=== PATIENT | female | born 1970 | race Caucasian/White ===

== ENCOUNTER 2020-08-04 21:11 | Inpatient (IN) | payer MEDICAID ==
[~2020-08-04] VITALS: Ht 162.6 cm; Wt 81.6 kg
--- NOTE | 2020-08-04 21:29 | NUR ---
URINE COLLECTED. SENT TO LAB
[2020-08-04] MEDS ORDERED: KETOROLAC TROMETHAMINE 15 MG/ML VIAL ONE (21:39)
--- NOTE | 2020-08-04 21:43 | NUR ---
PATIENT CAME TO THE ER BED 9 C/O RIGHT UPPER QUADRANT PAIN FOR 3 WEEKS THAT HAS BEEN WORSENING TODAY. PATIENT DENIES NAUSEA AT THE MOMENT. PATIENT IS AAOX4. NO SOB .BREATHING EVENLY AND UNLABORED ON ROOM AIR. CONNECTED TO THE MONITOR.
--- NOTE | 2020-08-04 21:46 | NUR ---
BLOOD COLLECTED AND SENT TO LAB.
[2020-08-04 21:50] LABS: HEMOGLOBIN 11.4 g/dL (11.5-14.8); WHITE BLOOD COUNT (AUTO) 7.2 K/uL (4.3-11.0)
[2020-08-04 21:51] LABS: BILIRUBIN,URINE Negative (NEGATIVE); COLOR,URINE YELLOW (YELLOW); LEUKOCYTE ESTERASE ,URINE Negative (NEGATIVE); NITRITE, URINE Negative (NEGATIVE); PROTEIN,URINE Negative (NEGATIVE); UGLUCOSE >=1000 mg/dL (NEGATIVE); UROBILINOGEN,URINE 0.2 EU/dL (0.2)
[2020-08-04 21:53] LABS: BASOPHILS % (AUTO) 0.2 % (0.0-2.0); EOSINOPHILS % (AUTO) 2.1 % (0.0-6.0); HEMATOCRIT 35 % (33-45); LYMPHOCYTES % (AUTO) 27.2 % (20.0-44.0); MEAN CORPUSCULAR HGB CONC 32 g/dl (31.0-36.0); MEAN CORPUSCULAR VOLUME 78 fL (82-100); MONOCYTES # (AUTO) 0.7 /CMM (0.1-1.30); NEUTROPHILS # (AUTO) 4.4 /CMM (1.8-8.9); NEUTROPHILS % (AUTO) 60.5 % (43.0-81.0); PLATELET COUNT (AUTO) 293 /CMM (150-450); RED BLOOD CELL COUNT(AUTO) 4.49 MIL/uL (4.0-5.2)
[2020-08-04 21:59] LABS: CALCIUM, SERUM 9.3 mg/dL (8.5-10.1); CREATININE 0.7 mg/dL (0.6-1.3)
[2020-08-04] MEDS ORDERED: KETOROLAC TROMETHAMINE INJ 30 MG/ML VIAL IV ONE (22:00)
[2020-08-04 22:06] LABS: ALBUMIN 3.7 g/dL (3.4-5.0); BILIRUBIN,DIRECT 0.1 mg/dL (0.0-0.2); BILIRUBIN,TOTAL 0.5 mg/dL (0.2-1.0)
[2020-08-04 22:11] LABS: BACTERIA,URINE Rare /HPF (None Seen); SQUAMOUS EPITHELIAL CELL,UR Few /HPF (None Seen); WBC,URINE NONE SEEN /HPF (0-3)
[2020-08-04] MEDS ORDERED: ASPIRIN 81 MG TAB.CHEW PO ONE (23:30)
[2020-08-04] MEDS ORDERED: ASPIRIN 81 MG TAB.CHEW ONE (23:44)
--- NOTE | 2020-08-05 00:26 | NUR ---
WOODYARD CRANE OPERATOR AT BEDSIDE FOR REDRAW OF TROPONIN
--- NOTE | 2020-08-05 04:26 | NUR ---
Yuliya hinojosa in ED - 08/05/20 at 0427 by DEBBIE ENCOURAGED PT TO PROVIDE URINE. PT STATES "I FINISHED MY WATER BOTTLE. I'LL TRY AGAIN LATER".
[2020-08-05] MEDS ORDERED: ONDANSETRON HCL/PF 4 MG/2 ML VIAL IVP PRN (05:00)
[2020-08-05] MEDS ORDERED: DEXTROSE 50%-WATER 50 ML DISP.SYRIN IV PRN (05:00)
[2020-08-05] MEDS ORDERED: ACETAMINOPHEN 325 MG TABLET PO PRN (05:00)
[2020-08-05] MEDS ORDERED: INSULIN REGULAR, HUMAN 100 UNIT/ML 3 ML VIAL SQ PRN (05:00)
[2020-08-05] MEDS ORDERED: MORPHINE SULFATE INJ 2 MG/ML DISP.SYRIN IV PRN (05:00)
[2020-08-05] MEDS ORDERED: ONDANSETRON HCL/PF 4 MG/2 ML VIAL ONE (05:11)
[2020-08-05] MEDS ORDERED: MORPHINE SULFATE INJ 2 MG/ML DISP.SYRIN ONE (05:11)
[2020-08-05] MEDS: BLOOD SUGAR DIAGNOSTIC 1 EACH STRIP IN SCH ×2 (05:22→12:21)
[2020-08-05 05:27] LABS: BASOPHILS % (AUTO) 0.2 % (0.0-2.0); EOSINOPHILS % (AUTO) 2.9 % (0.0-6.0); HEMATOCRIT 33 % (33-45); HEMOGLOBIN 10.7 g/dL (11.5-14.8); LYMPHOCYTES # (AUTO) 1.8 /CMM (0.8-4.8); LYMPHOCYTES % (AUTO) 31.1 % (20.0-44.0); MEAN CORPUSCULAR HGB CONC 33 g/dl (31.0-36.0); MEAN CORPUSCULAR VOLUME 77 fL (82-100); MONOCYTES # (AUTO) 0.6 /CMM (0.1-1.30); MONOCYTES % (AUTO) 9.9 % (2.0-12.0); NEUTROPHILS # (AUTO) 3.3 /CMM (1.8-8.9); NEUTROPHILS % (AUTO) 55.9 % (43.0-81.0); PLATELET COUNT (AUTO) 266 /CMM (150-450); RED BLOOD CELL COUNT(AUTO) 4.22 MIL/uL (4.0-5.2); WHITE BLOOD COUNT (AUTO) 5.9 K/uL (4.3-11.0)
[2020-08-05 05:41] LABS: CHOLESTEROL 184 mg/dL (<200); HDL CHOLESTEROL 33 mg/dL (40-60); LDL 125 mg/dL (0-99); TRIGLYCERIDES 186 mg/dL (30-150)
[2020-08-05 05:43] LABS: ALANINE AMINOTRANSFERASE 24 U/L (12-78); ALBUMIN 3.3 g/dL (3.4-5.0); ALKALINE PHOSPHATASE 82 U/L (46-116); ASPARTATE AMINOTRANSFERASE 13 U/L (15-37); BILIRUBIN,TOTAL 0.5 mg/dL (0.2-1.0); CALCIUM, SERUM 8.9 mg/dL (8.5-10.1); CARBON DIOXIDE 26 mmol/L (21-32); CHLORIDE 101 mmol/L (98-107); CREATININE 0.6 mg/dL (0.6-1.3); GLUCOSE 228 mg/dL (74-106); LIPASE 70 U/L (73-393); MAGNESIUM 1.8 mg/dL (1.8-2.4); PHOSPHORUS 4.1 mg/dL (2.5-4.9); POTASSIUM 3.9 mmol/L (3.5-5.1); SODIUM SERUM 137 mmol/L (136-145); TOTAL PROTEIN, SERUM 7.1 g/dL (6.4-8.2); UREA NITROGEN, BLOOD 11 mg/dL (7-18)
--- NOTE | 2020-08-05 07:40 | NUR ---
REPORT GIVEN TO RENETTA HOWELL FOR [facility].
[2020-08-05] MEDS ORDERED: FAMOTIDINE/PF INJ 20 MG/2 ML VIAL IV SCH (09:00)
[2020-08-05] MEDS ORDERED: FAMOTIDINE/PF INJ 20 MG/2 ML VIAL IV ONE (09:01)
[2020-08-05] MEDS ORDERED: METF-442 PO (09:07)
[2020-08-05] MEDS ORDERED: ASPI-1169 PO (09:07)
[2020-08-05] MEDS ORDERED: INSU100V7 SQ ×2 (09:07)
[2020-08-05] MEDS ORDERED: IV NS 0.9% 250 ML IV ONE (09:30)
[2020-08-05] MEDS ORDERED: IOHEXOL-300 100 ML VIAL IV ONE (09:30)
[2020-08-05] MEDS ORDERED: CT SWABBABLE VALVE TRANS SET 1 EA INFUS.SET MC ONE (09:30)
--- NOTE | 2020-08-05 09:44 | NUR ---
COMPLETED CT SCAN WITH CONTRAST. INSTRUCTED NOT TO TAKE METFORMIN X2 DAYS.
[2020-08-05] MEDS ORDERED: ATOR10TA PO (11:27)
[2020-08-05] MEDS ORDERED: POLY17PO4 PO (11:27)
--- NOTE | 2020-08-05 11:28 | NUR ---
SEEN AND EXAMINED BY MARINO TAYLOR NP.
[2020-08-05] MEDS ORDERED: LACTULOSE 10 G/15 ML UDC (PYXIS) PO ONE (11:30)
[2020-08-05] MEDS ORDERED: SORBITOL SOLUTION 30 ML PO ONE (11:30)
[2020-08-05] MEDS ORDERED: SORBITOL SOLUTION 30 ML ONE (11:32)
[2020-08-05] MEDS ORDERED: LACTULOSE 10 G/15 ML UDC (PYXIS) ONE (11:32)
--- NOTE | 2020-08-05 13:20 | NUR ---
PATIENT A/OX4, BREATHING EVEN AND UNLABORED, GIVEN WATER. STILL UNABLE TO HAVE BM AT THIS TIME. MD SAID ITS OKAY. PATIENT GIVEN RX. IV removed. Catheter intact and site benign. Pressure and 4x4 applied to site. No bleeding noted.Patient discharged to home in stable condition. Written and verbal after care instructions given. Patient verbalizes understanding of instruction.
[2020-08-05 13:21] VITALS: BP 121/78
[2020-08-05] MEDS ORDERED: ATORVASTATIN 10 MG TABLET PO SCH (22:00)
== END 2020-08-05 13:22 | disposition home or self-care (01) | DRG 254 ==
LOC: ER 21:14 → TRANSITION 08-05 01:35
PROVIDERS: ADMIT Nurse Practitioner Acute Care; ATTEND Nurse Practitioner Acute Care
DX: K59.00 Constipation, unspecified (principal); E11.40 Type 2 diabetes mellitus with diabetic neuropathy, unspecified; Z79.4 Long term (current) use of insulin; Z79.82 Long term (current) use of aspirin; Z90.49 Acquired absence of other specified parts of digestive tract; Z88.0 Allergy status to penicillin; E78.5 Hyperlipidemia, unspecified; E86.0 Dehydration; E87.1 Hypo-osmolality and hyponatremia; D68.59 Other primary thrombophilia; E11.65 Type 2 diabetes mellitus with hyperglycemia; E66.9 Obesity, unspecified; K42.9 Umbilical hernia without obstruction or gangrene; Z68.30 Body mass index [BMI] 30.0-30.9, adult
CPT/HCPCS: 36415; 71045-TC; 80048-TC; 80053-TC; 80061-TC; 80076-TC; 81001; 82962-TC; 83690-TC; 83735-TC; 84100-TC; 84484-TC; 84703-TC; 85025-TC; 87081-TC; C9113; G0378; J1815; J1885; J2270; J2405; J3490; J7050; Q9967

== ENCOUNTER 2020-08-25 13:14 | Emergency (ER) | payer MEDICAID ==
[~2020-08-25] VITALS: Ht 157.5 cm; Wt 80.7 kg
[~2020-08-25 13:14] MED LIST: ASPI-1169 PO; ATOR10TA PO; INSU100V7 SQ; METF-442 PO; POLY17PO4 PO
--- NOTE | 2020-08-25 13:14 | NUR ---
PT BIB SELF C/O RIGHT FLANK RADIATING TO RUQ X 1 MONTH. PT IS AAOX4, NOT IN RESPIRATORY DISTRESS, HOOKED TO SUPERVISOR BODY ASSEMBLY, KEPT RESTED AND COMFORTABLE. WILL CONTINUE TO MONITOR.
--- NOTE | 2020-08-25 13:25 | NUR ---
Yuliya hinojosa in [facility] - 08/25/20 at 1340 by ZAIN SEEN AND EXAMINED BY .
--- NOTE | 2020-08-25 13:25 | NUR ---
SEEN AND EXAMINED BY .
--- NOTE | 2020-08-25 13:33 | NUR ---
IV LINE ESTABLISHED BLOOD DRAWN AND SENT TO LAB.
[2020-08-25] MEDS ORDERED: ONDANSETRON HCL/PF 4 MG/2 ML VIAL ONE (13:44)
[2020-08-25 13:45] LABS: BASOPHILS % (AUTO) 0.4 % (0.0-2.0); EOSINOPHILS % (AUTO) 3.6 % (0.0-6.0); HEMATOCRIT 36 % (33-45); HEMOGLOBIN 11.5 g/dL (11.5-14.8); LYMPHOCYTES # (AUTO) 1.6 /CMM (0.8-4.8); MEAN CORPUSCULAR HGB CONC 32 g/dl (31.0-36.0); MEAN CORPUSCULAR VOLUME 78 fL (82-100); MONOCYTES # (AUTO) 0.8 /CMM (0.1-1.30); MONOCYTES % (AUTO) 8.5 % (2.0-12.0); NEUTROPHILS # (AUTO) 6.5 /CMM (1.8-8.9); NEUTROPHILS % (AUTO) 70.5 % (43.0-81.0); PLATELET COUNT (AUTO) 242 /CMM (150-450); RED BLOOD CELL COUNT(AUTO) 4.58 MIL/uL (4.0-5.2); WHITE BLOOD COUNT (AUTO) 9.2 K/uL (4.3-11.0)
[2020-08-25] MEDS ORDERED: MORPHINE SULFATE INJ 4 MG/ML DISP.SYRIN ONE (13:45)
[2020-08-25 13:46] LABS: BILIRUBIN,URINE NEGATIVE (NEGATIVE); COLOR,URINE YELLOW (YELLOW); LEUKOCYTE ESTERASE ,URINE NEGATIVE (NEGATIVE); NITRITE, URINE NEGATIVE (NEGATIVE); PROTEIN,URINE NEGATIVE (NEGATIVE); UGLUCOSE >=1000 mg/dL (NEGATIVE); UROBILINOGEN,URINE 0.2 EU/dL (0.2)
[2020-08-25 14:00] LABS: ALBUMIN 3.7 g/dL (3.4-5.0); BILIRUBIN,DIRECT 0.1 mg/dL (0.0-0.2); BILIRUBIN,TOTAL 0.4 mg/dL (0.2-1.0); CALCIUM, SERUM 9.7 mg/dL (8.5-10.1); CREATININE 0.7 mg/dL (0.6-1.3); TOTAL PROTEIN, SERUM 7.7 g/dL (6.4-8.2)
[2020-08-25] MEDS ORDERED: ONDANSETRON HCL/PF 4 MG/2 ML VIAL IVP ONE (14:00)
[2020-08-25] MEDS ORDERED: MORPHINE SULFATE INJ 2 MG/ML DISP.SYRIN IV ONE (14:00)
[2020-08-25 14:04] LABS: RBC,URINE 0-2 /HPF (0-2)
[2020-08-25 14:07] LABS: BACTERIA,URINE Few /HPF (None Seen); YEAST,URINE Few /HPF (None Seen)
[2020-08-25 14:08] LABS: SQUAMOUS EPITHELIAL CELL,UR Many /HPF (None Seen)
--- NOTE | 2020-08-25 14:21 | NUR ---
PT IS BACK FROM THE CT SCAN.
[2020-08-25] MEDS ORDERED: IV NS 0.9% 1,000 ML IV ONE (15:00)
[2020-08-25] MEDS ORDERED: IBUP-1955 PO (15:29)
--- NOTE | 2020-08-25 15:50 | NUR ---
IV removed. Catheter intact and site benign. Pressure and 4x4 applied to site. No bleeding noted. Patient discharged to home in stable condition. Written and verbal after care instructions given. Patient verbalizes understanding of instruction.
[2020-08-25 15:51] VITALS: BP 123/81
== END 2020-08-25 15:51 | disposition home or self-care (01) ==
LOC: ER 13:14
DX: R10.31 Right lower quadrant pain (principal); R10.11 Right upper quadrant pain; E11.65 Type 2 diabetes mellitus with hyperglycemia; E78.5 Hyperlipidemia, unspecified; Z90.49 Acquired absence of other specified parts of digestive tract; Z88.0 Allergy status to penicillin; Z79.82 Long term (current) use of aspirin; Z79.84 Long term (current) use of oral hypoglycemic drugs; Z79.899 Other long term (current) drug therapy
CPT/HCPCS: 36415; 74176; 80048; 80076; 81001; 83690; 85025; 96361; 96374; 96375; 99284; J2270; J2405; J7030

== ENCOUNTER 2024-03-27 10:50 | Emergency (ER) | payer MEDICAID, OTHER ==
[~2024-03-27] VITALS: Ht 165.1 cm; Wt 86.2 kg
[~2024-03-27 10:50] MED LIST changes: +IBUP-1955 PO
[2024-03-27 11:00] VITALS: BP 127/69; TEMP 98.2
--- NOTE | 2024-03-27 11:10 | NUR ---
THE PATIENT BIBS FOR C/O RIGHT KNEE PAIN X 1 MONTH,NO TRAUMA, HURST TO WALK. RATES PAIN 4/10.
[2024-03-27] MEDS ORDERED: IBUP-1955 PO (12:16)
[2024-03-27 12:32] VITALS: O2SAT 99
--- NOTE | 2024-03-27 12:32 | NUR ---
Patient discharged to home in stable condition. Written and verbal after care instructions given. Patient verbalizes understanding of instruction.
== END 2024-03-27 12:33 | disposition home or self-care (01) ==
LOC: ER 10:53
DX: S83.91XA Sprain of unspecified site of right knee, initial encounter (principal); Z90.49 Acquired absence of other specified parts of digestive tract; Z88.0 Allergy status to penicillin; X58.XXXA Exposure to other specified factors, initial encounter; Y93.89 Activity, other specified; Y92.89 Other specified places as the place of occurrence of the external cause; Y99.8 Other external cause status
CPT/HCPCS: 73564-TC